=== PATIENT | female | born 1990 | race Caucasian/White ===

== ENCOUNTER 2021-10-06 13:55 | Outpatient (CLI) | payer OTHER, SELFPAY ==
--- NOTE | 2021-10-06 14:00 | US_ITS ---
Final Report Patient: NISHA DIXON Facility:?[facility] Patient ID:?[id number] Site Patient ID:?[id number]. Site :?1990 Study:?US OB Pelvis -10/06/2021 2:32:04 PM Ordering Physician:Ginna Collins Final Report: INDICATION: Dating and viability. TECHNIQUE: Ultrasound OB pelvis transabdominal and transvaginal. Real-time johnson-scale imaging of the pelvis was performed. COMPARISON: None. FINDINGS: There is a single intrauterine gestation. The embryo demonstrates a regular cardiac rate measuring 178 beats per minute. The embryo`s crown rump length measurement of 2.4 cm corresponds to a gestational age of 9 weeks 1 day with a sonographic due date of 05/10/2022. There is a normal appearing yolk sac. There are no gross abnormalities noted within the embryo at this early state of development. There is no sign of perigestational hemorrhage. The ovaries are of normal size. Right ovary measures 2.9 x 1.1 x 1.5 cm. Left ovary measures 3.4 x 2.2 x 2.0 cm. Corpus luteum cyst on the left there are no suspicious fluid collections noted in the cul-de-sac. IMPRESSION: Single viable intrauterine estimated gestational age of 9 weeks 1 day. No abnormalities seen. Dictated by Víctor Ballesteros MD @ 10/06/2021 8:51:14 PM (Electronic Signature)
== END 2021-10-06 13:56 | disposition home or self-care (01) ==
PROVIDERS: Visit Provider Registered Nurse
DX: Z34.91 Encounter for supervision of normal pregnancy, unspecified, first trimester (principal); Z36.87 Encounter for antenatal screening for uncertain dates; Z36.89 Encounter for other specified antenatal screening
CPT/HCPCS: 76817; 81420

== ENCOUNTER 2021-10-06 15:25 | Outpatient (CLI) | payer OTHER, SELFPAY ==
[2021-10-06 19:48] LABS: HIV 1/2/P24 Combo Screen* Negative (Negative)
[2021-10-06 19:50] LABS: Hepatitis B Surface Antigen* Negative (Negative); Hepatitis C Virus Antibody* Negative (Negative)
[2021-10-09 01:04] LABS: Rapid Plasma Reagin (RPR) Non Reactive (Non Reactive)
== END 2021-10-06 15:26 | disposition home or self-care (01) ==
PROVIDERS: Visit Provider Registered Nurse
DX: Z34.01 Encounter for supervision of normal first pregnancy, first trimester (principal); Z36.89 Encounter for other specified antenatal screening; Z3A.09 9 weeks gestation of pregnancy
CPT/HCPCS: 86592; 86703; 86706; 86762; 86803; 86850; 86900; 86901; 87086; 87491; 87591

== ENCOUNTER 2021-11-24 14:45 | Outpatient (CLI) | payer BC, SELFPAY ==
[2021-11-27 08:47] LABS: Dating Ultrasound; Family Hx Neural Tube Defect No; Gestational Age Calculated 16 wks, 1 days; Insulin Req Maternal Diabetes No; Maternal Age At Delivery 31.5 yr; Maternal Race Nonblack; Maternal Screen Interpretation Screen Neg; MoM for AFP 0.99; Number of Fetuses Singleton; Patient's AFP 35 ng/mL; Smoking No
[2021-12-17 10:39] LABS: Client Provided Dating Method ULTRASOUND; Maternal Weight 148
[2021-12-17 10:40] LABS: Current Smoking N0
== END 2021-11-24 14:46 | disposition home or self-care (01) ==
LOC: LAB 14:46
PROVIDERS: Visit Provider Obstetrics & Gynecology
DX: Z34.92 Encounter for supervision of normal pregnancy, unspecified, second trimester (principal); Z3A.16 16 weeks gestation of pregnancy
CPT/HCPCS: 36415; 81511

== ENCOUNTER 2021-12-22 13:48 | Outpatient (CLI) | payer BC, SELFPAY ==
--- OUTSIDE RECORDS SUMMARY | 2021-12-22 13:50 | XMS_ITS ---
:1990 Author Care Team Providers Name Role Phone Etta [place] Primary Care Provider Unavailable Allergies Code Code System Name Reaction Severity Status Onset NKDA ? Medications Name Status Start Date Stop Date ? ? fluconazole 150 mg tablet Active ? Not av ailable Problems None recorded. Procedures None recorded. Results Lab Results Date Name Specimen Result Interpretation Description Value Range Status Address ? 04/17/2021 SARS CoV 2 RNA, Nose (nasal ? Result negative ? ? [facility], BEAR+probe, passage) [facility]gent [facility] Nose [place]: [address] Past Encounters 04/17/2021 Exposure to SARS-CoV-2 JANETH [place]: [address] [address], Ph. [phone] Social History None recorded. Vaccine List None recorded. Plan of Care Patient Instructions Patient is traveling tomorrow and prese nts today for covid testing. No current symptoms or other concerns. Reminders Provider Appointments None recorded. ? ? Lab None recorded. ? ? Referral None recorded. ? ? Procedures None recorded. ? ? Surgeries None recorded. ? ? Imaging None recorded. ? ? Vitals Blood Pressure 128/89 mm[Hg]
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
--- NOTE | 2021-12-22 14:00 | CRLHL7_ITS ---
For Patients: As a result of the Century Cures Act, medical imaging exams and procedure reports are released immediately into your electronic medical record. You may view this report before your referring provider. If you have questions, please contact your health care provider. INDICATION: Evaluate anatomy. COMPARISON: 10/06/2021 TECHNIQUE: Real time johnson scale imaging of the fetus was performed as well as color Doppler analysis of the umbilical vessels. FINDINGS: Sonographic imaging demonstrates a single living intrauterine gestation. Fetus demonstrates a regular cardiac rate of 152 beats per minute. Fetus has a vertex position. The placenta lies anteriorly without evidence of placenta previa. The edge of the placenta is located 7.9 cm from the internal cervical os. Amniotic fluid volume appears normal. Single deepest vertical pocket: 3.4 cm. The cervix is closed and measures 4.1 cm in length. The composite ultrasound gestational age is calculated at 20 weeks 6 days with an estimated sonographic due date of 05/05/2022. The estimated weight is 377 grams which lies at the 81st %. The following biometric measurements were obtained: Biparietal diameter: 4.9 cm/20 weeks 6 days 79th% Head circumference: 18.0 cm/20 weeks 3 days 55th% Abdominal circumference: 16.2 cm/21 weeks 2 days 79th% Femur length: 3.3 cm/20 weeks 2 days 49th% The HC/AC ratio measures: 1.11 range (1.06-1.25) On anatomic survey, there is a normal appearance of the cerebral ventricles, cavum septi pellucidi, cisterna magna and cerebellum. The nose, lips, and facial profile appear normal. The cervical, thoracic and lumbar spine are well visualized and appear normal. There is a normal four-chamber heart view and the left and right ventricular outflow tracts appear normal. The diaphragm and stomach appear normal. The kidneys and bladder also appear normal. There is a normal three-vessel cord and cord insertion site. The four extremities appear normal. IMPRESSION: Normal OB ultrasound exam with concordance of clinical and sonographic dating. No intrinsic abnormalities noted on anatomic survey. Dictated by Ryan Andino MD @ 12/22/2021 3:01:38 PM (Electronically Signed)
== END 2021-12-22 13:49 | disposition home or self-care (01) ==
PROVIDERS: Visit Provider Registered Nurse
DX: Z36.89 Encounter for other specified antenatal screening (principal)
CPT/HCPCS: 76805

== ENCOUNTER 2022-02-16 14:23 | Outpatient (CLI) | payer BC, SELFPAY ==
--- OUTSIDE RECORDS SUMMARY | 2022-02-16 14:26 | XMS_ITS | Clinical Summary ---
:1990 Author Organization [facility] [place] [address] Care Team Providers Name Role Phone Clinic, [...] Comments Blood Pressure 138/86 06/11/2021 4:40 PM COUNSEL Pulse 97 06/11/2021 4:40 PM COUNSEL Temperature 37.3 ??C (99.1 ??F) 06/11/2021 4:40 PM COUNSEL Respiratory Rate 16 03/13/2007 10:16 PM COUNSEL Oxygen Saturation 100% 06/11/2021 4:40 PM COUNSEL Inhaled Oxygen Concentration - - Weight 63.2 kg (139 lb 6.4 oz) 06/11/2021 4:40 PM COUNSEL Height 172.7 cm (5' 8) 06/11/2021 4:40 PM COUNSEL Body Mass Index 21.2 06/11/2021 4:40 PM COUNSEL Plan of Treatment Health Maintenance Due Date Last Done Comments Hepatitis C screening for age 0811/24/2008 18-79 COVID-19 vaccine series (2 - 08/14/2020 06/19/2020 Booster for Brnaden series) Depression screening for age 12+ 07/11/2021 [...] ss Type Group PREFERRED ONE ALLIED BENEFIT [id number] 2020-Present [employer] [phone] [place] [address] Care Teams Fur Finisher Relationship Specialty Start Date End Date Clinic, No Pcp Or PCP - General 03/12/19 .
[2022-02-18 10:21] LABS: Rapid Plasma Reagin (RPR) Non Reactive (Non Reactive)
== END 2022-02-16 14:24 | disposition home or self-care (01) ==
LOC: NFLDREF 14:23
PROVIDERS: Visit Provider Registered Nurse
DX: Z34.90 Encounter for supervision of normal pregnancy, unspecified, unspecified trimester (principal)
CPT/HCPCS: 86592

== ENCOUNTER 2022-02-22 08:54 | Outpatient (CLI) | payer BC, SELFPAY ==
--- OUTSIDE RECORDS SUMMARY | 2022-02-22 08:57 | XMS_ITS | Clinical Summary ---
:1990 Author Organization [facility] [place] [address] Care Team Providers Name Role Phone Clinic, [...] Comments Blood Pressure 138/86 06/11/2021 4:40 PM PRIME BROKER Pulse 97 06/11/2021 4:40 PM PRIME BROKER Temperature 37.3 ??C (99.1 ??F) 06/11/2021 4:40 PM PRIME BROKER Respiratory Rate 16 03/13/2007 10:16 PM PRIME BROKER Oxygen Saturation 100% 06/11/2021 4:40 PM PRIME BROKER Inhaled Oxygen Concentration - - Weight 63.2 kg (139 lb 6.4 oz) 06/11/2021 4:40 PM PRIME BROKER Height 172.7 cm (5' 8) 06/11/2021 4:40 PM PRIME BROKER Body Mass Index 21.2 06/11/2021 4:40 PM PRIME BROKER Plan of Treatment Health Maintenance Due Date [...] ss Type Group PREFERRED ONE ALLIED BENEFIT [id number] 2020-Present [employer] [phone] [place] [address] Care Teams Pct Relationship Specialty Start Date End Date Clinic, No Pcp Or PCP - General 03/12/19 .
== END 2022-02-22 08:55 | disposition home or self-care (01) ==
LOC: NFLDREF 08:55
PROVIDERS: Visit Provider Obstetrics & Gynecology
DX: R39.9 Unspecified symptoms and signs involving the genitourinary system (principal)
CPT/HCPCS: 87086

== ENCOUNTER 2022-04-13 14:27 | Outpatient (CLI) | payer BC, SELFPAY ==
[2022-04-14 12:51] LABS: Strep B DNA Probe NEGATIVE (Negative)
[2022-04-14 12:55] LABS: Strep B Pen/Amox Allergy No
== END 2022-04-13 14:28 | disposition home or self-care (01) ==
LOC: NFLDREF 14:29
PROVIDERS: Visit Provider Obstetrics & Gynecology
DX: Z34.93 Encounter for supervision of normal pregnancy, unspecified, third trimester (principal); Z3A.36 36 weeks gestation of pregnancy
CPT/HCPCS: 87081; 87653

== ENCOUNTER 2022-05-18 15:59 | Inpatient (IN) | payer BC, SELFPAY ==
[2022-05-18 16:25] VITALS: BMI 28.3
--- NOTE | 2022-05-18 16:35 | W.PM.LDBA ---
Subjective History of Present Illness Time Seen by Provider: 17:03 Date Seen: 05/18/22 Narrative: Patient is being admitted to Labor and Delivery for IOL due to post term dates . She is a 31 year old at 41 0/7 weeks gestation. Her full history and physical was dictated by Dr. Avitia on 04/20/22. Please see this for details. Comments: Specific Issues/Plans G1, P0 : Bacilio. Baby: Girl! Gracie 1. History of ADHD and anxiety.? Took medication several years ago.? Doing quite well without medication. ? 2. Migraines.? No migraines in a long time.? Used triptans in the past. 3. Frequent UTIs.? Urine culture 10/06/21:? >100 K mixed elyssa MaterniT 21:? neg, consistent with female flu: 01/19/22 Covid:? Completed and boosted TDAP: 03/02/22 OB - Problem Based A/P Additional Plan (1) : Status: Acute Plan IOL due to post term dates: 1. Cook catheter placed and balloons filled with 50/50 mL, will plan to start oxytocin at midnight 2. GBS negative no need for antibiotic prophylaxis 3. Candidate for analgesia of choice 4. Discussed with patient that in am care will be assumed by locum provider Dr. Hernandez OB Exam Physical Exam Vital signs: Normal please see chart Detailed Labor and Delivery Exam Patient Gravid: Yes Dilation (cm): 1 Effacement (%): 50 Cervix position: mid Consistency: soft Contraction Frequency: Sporadic Tachysystole: No Contraction intensity: Mild Fetus (Single) Station: -2 Amniotic Membrane Status: intact Heart Rate Baseline: 135 Monitor Accelerations: Present Monitor Decelerations: None [facility] Variability: Moderate (6-25)
[2022-05-18 17:13] LABS: SARS PCR* Negative SARS-CoV-2 (Negative)
[2022-05-18 17:19] VITALS: RESP 16; TEMP 36.9
[2022-05-18 17:20] VITALS: BP 127/75; PULSE 81
[2022-05-18 18:29] LABS: Basophils Percent Auto 0.3 % (0.0-3.0); Hematocrit 43.2 % (33.0-51.0); Hemoglobin* 14.6 gm/dL (12.0-16.0); Immature Granulocytes Pct Auto 0.9 %; Lymphocytes Percent Auto 18.2 % (20-44); Mean Corpuscular HGB Conc 34 gm/dL (32-36); Mean Corpuscular Hemoglobin 30 pg (26-34); Mean Corpuscular Volume 89 fL (80-100); Monocytes Percent Auto 7.6 % (0.0-11.0); Platelet Count* 183 K/uL (140-440); RDW Coefficient of Variation % 13.4 % (11.5-15.5); Red Blood Count 4.85 m/uL (4.00-5.20); White Blood Count* 11.08 K/uL (4.50-11.00)
[2022-05-18 18:30] LABS: Slide Review Reflex No
[2022-05-18] MEDS: hydrOXYzine pamoate 25 MG CAPSULE 100 MG PO (19:22)
[2022-05-18] MEDS: MORPHINE 10 MG/ML inj IM (19:23)
[2022-05-18 19:29] VITALS: BP 116/64; PULSE 82
[2022-05-18 19:31] VITALS: RESP 18; TEMP 36.8
[2022-05-18 23:14] VITALS: BP 120/57; PULSE 74
[2022-05-18 23:17] VITALS: RESP 16; TEMP 36.9
[2022-05-19] VITALS (73 sets, daily range): BP systolic 96–193; BP diastolic 53–89; PULSE 71–127; RESP 16–18; TEMP 36.6–37; O2SAT 93–100
[2022-05-19] MEDS: SODIUM CHLORIDE 0.9 % (FLUSH) 10 ML SYRINGE IVF
[2022-05-19] MEDS: OXYTOCIN 30 unit/500 ML in NS 30 UNIT/500 ML BAG IVPB (00:01)
[2022-05-19] MEDS: LACTATED RINGERS 1000 ML 1,000 ML 125 ML IV ×2 (00:01→07:31)
--- NOTE | 2022-05-19 08:08 | P.OBPN_ITS ---
Subjective Date Seen: 05/19/22 Narrative: Jenn is a at 41 1/7 weeks gestation, admitted last evening for IOL for post-term. She is coping well with labor pain/contractions. She is currently being supported by her .. Understands the current plan of care as discussed with her by Dr. Burns. We are assuming care as she prefers not to have a Locum MD for delivery. On most recent exam, she was 4cm 75% effaced. Her induction was started with a cook catheter and Pitocin. Cook has since fallen out but they continue to titrate Pitocin. Plan for AROM at some point this morning. She prefers to wait so that she can be up and moving around. She plans to get an epidural before AROM. Objective Exam: Constitutional: Alert and oriented x3, mild/moderate distress, coping well. Does pause through contractions. Vital signs stable, see nurse documentation?? Abdomen: gravid, contractions palpate mild/moderate with contractions and soft between? Vital Signs: Last Vital Signs Temp 97.8 F 05/19/22 07:14 Pulse 82 05/19/22 07:14 Resp 18 05/19/22 07:14 BP 122/72 05/19/22 07:14 Contractions Monitor mode: External Contraction pattern: Regular Contraction intensity: Mild Assessment Assessment: early labor Station: -2 Heart Rate Baseline: 135 Residential Variability: Moderate (6-25) Monitor Accelerations: Present Monitor Decelerations: None Plan Plan: ASSESSMENT:? 31 at 41 1/7 weeks gestation? complicated by:?none Labor type: induced, early labor? Category 1 FHR pattern.?? Labor complicated by: none? GBS negative? ? PLAN:? 1. Routine intrapartum cares as ordered. Continue with pitocin per protocol.? 2. Monitoring per policy, continuous? 3. Planning epidural for pain management. May have analgesic of choice when ready. 4. Patient encouraged to reposition and ambulate to promote physiologic labor and until epidural. Then continue position changes after.? 5. Anticipate ?
[2022-05-19] MEDS: LACTATED RINGERS 1000 ML 1,000 ML 1200 ML IV (09:22)
[2022-05-19] MEDS: LIDOCAINE 2% (PF) 5 ML VIAL EPIDURAL (09:26)
[2022-05-19] MEDS: fentaNYL 250 MCG/5 ML inj 100 MCG EPIDURAL (09:30)
[2022-05-19] MEDS: ROPIVACAINE 0.2% 100 ml 100 ML 12 MG EPIDURAL (09:36)
--- NOTE | 2022-05-19 09:48 | PM.ANBPRC ---
PFSH PFSH Social History Smoking Status: Never smoker Little interest or pleasure in doing things: not at all Feeling down, depressed, or hopeless: not at all Meds Home Medications and Allergies Home Medications Medication Instructions Recorded Confirmed Type prenat.vits,brandon,oxi-tjdr-udjij 1 tab PO QDAY 10/06/21 05/18/22 History calcium carbonate 200 mg calcium 200 mg PO BID 01/19/22 05/18/22 History (500 mg) chewable tablet (Tums) docusate sodium 100 mg capsule 100 mg PO BID 01/19/22 05/18/22 History (Colace) polyethylene glycol 3350 17 4 g PO ONCE 03/30/22 05/18/22 History gram/dose oral powder (Miralax) Allergies Allergy/AdvReac Type Severity Reaction Status Date / Time No Known Drug Allergies Allergy Verified 05/17/22 12:35 Results Labs Labs: Laboratory Results - last 24 hr 05/18/22 05/18/22 05/18/22 16:17 18:22 18:22 WBC 11.08 H RBC 4.85 Hgb 14.6 Hct 43.2 MCV 89 MCH 30 MCHC 34 RDW Coeff of Reema 13.4 Plt Count 183 Neut % (Auto) 72.0 Lymph % (Auto) 18.2 L [place] % (Auto) 7.6 Eos % (Auto) 1.0 Baso % (Auto) 0.3 Neut # (Auto) 8.00 H Lymph # (Auto) 2.00 [place] # (Auto) 0.80 Eos # (Auto) 0.10 Baso # (Auto) 0.00 SARS-CoV-2 (PCR) Negative SARS-CoV-2 Blood Type O Positive Antibody Screen NEGATIVE Vital Signs Vital Signs: Last Vital Signs Temp 98.1 F 05/19/22 09:46 Pulse 97 05/19/22 09:42 Resp 18 05/19/22 09:46 BP 105/55 L 05/19/22 09:42 Pulse Ox 100 05/19/22 09:47 Weight: 84.567 kg Height: 172.72 cm Anesthesia Procedures Epidural Insertion Patient Location: OB Start Time: 09:00 Stop Time: 10:00 Start Date: 05/19/22 Stop Date: 05/19/22 Reason for Block: primary anesthetic Patient Position: sitting Performed By: Rodolfo Muñoz Preanesthetic Checklist: IV checked, risks and benefits discussed, surgical consent, monitors and equipment checked, pre-op evaluation, timeout performed and anesthesia consent Prep: chlorhexidine gluconate Monitoring: blood pressure monitoring, radiographer cardiac catheterization, continuous pulse oximetry and heart rate Approach: midline Vertebral Space: lumbar (1-5) Needle Type: Tuohy needle Injection Technique: continuous catheter Needle gauge: 17 Needle Length (cm): 10 cm Needle Insertion Depth (cm): 6 Catheter Gauge: 19 Catheter Type: multi-orifice Catheter at skin depth (cm): 12 Test Dose Result: negative and lidocaine 1.5% with epinephrine 1 to 200,000 Events: other
[2022-05-19] MEDS: PHENYLEPHRINE 100 MCG/ML SYRINGE IVP (10:05)
--- NOTE | 2022-05-19 16:05 | P.OBPRC_ITS ---
Procedure Delivery date: 05/19/22 Procedure Done: Global Events: Labor Induction (Post dates 41 1/7 weeks) Intrapartal Events: Labor Induction Induction method: per pitocin protocol (Hardwick Catheter) Delivery monitor: external FHT and external uterine Route of delivery: Laceration description: Perineal - 2nd Degree (slight) Delivery repair: Vicryl Estimated blood loss (mL): 670 Anesthesia type: Epidural Disposition: floor Narrative: The patient is a 31 year-old G1 now P1 admitted on 05/18/2022 at 40 Weeks, 0 Days gestation for induction of labor for post-dates.?On admission a category 1 tracing was obtained.? SROM occurred at 1207 with clear fluid. ? Labor Analgesia:? Epidural ? Pitocin:? Yes for IOL and AMSTL ? Labor onset:? 05/19/2022 at 0915 ? Complete:05/19 at 1158 ? Pushing:? 05/19 at 1204 ? heart tones during second stage were Category II with variables noted, FHR 135, moderate variability with occasional accelerations. Good return to baseline noted between contractions. ? Patient progressed normally with Pitocin. of a viable female at 1436 in right tilt. Vertex delivered OA. Nuchal cord palpated at delivery unable to reduce, delivered through. No shoulder. Body delivered easily and without incident. passed to mothers abdomen with a vigorous cry. Cord was clamped and cut at 1 minute. APGARS were 8 at one minute and 8 at five minutes respectively. Mouth was bulb suctioned. Intact placenta with a 3 vessel cord delivered spontaneously at 1444. Immediately after delivery of the infant, there was steady bright red bleeding noted from the perineum. Bleeding was located and a figure 8 stitch was placed which slowed bleeding to a trickle. Perineum had a slight 2nd degree laceration which was repaired, additional stitches placed to achieve hemostasis. Vaginal hematomas present, not growing during repair. Bilateral periurethral tears noted which did not require repair. Fundus firm however cervix visible at vaginal opening uterus sitting low in pelvis, bleeding WNL. QBL 670 cc, bleeding mostly from laceration. Mother and baby stable; mother plans to breastfeed. Infant weight pending. ? Placenta delivered spontaneously and complete at 1444 with a 3 vessel cord. ? Mother and were stable after delivery. ? Lacerations: shallow 2nd degree, Repaired with 3.0 vicryl. ? Blood loss: 670 mL. Blood loss measurement type: QBL ? Sponge and needles counts are correct. Brooks Infant Gender: Female presentation: vertex Placental Delivery Description: Spontaneous Cord Description: 3 Vessels and Nuchal Cord (times 1) OB Vag Delivery Procedures Additional Procedures ECV: No Optosecurity Catheter Insertion: Yes (inserted by MD for IOL) NST: No D&C: No Laceration Repair: Yes Tubal Ligation : No Other: No
[2022-05-19] MEDS: miSOPROStoL 800 MCG/4 TABLET PR (16:32)
[2022-05-19] MEDS: IBUPROFEN 600 MG TABLET PO (16:39)
[2022-05-19] MEDS: ACETAMINOPHEN 500 MG TABLET 1000 MG PO (20:46)
[2022-05-20] MEDS: IBUPROFEN 600 MG TABLET PO ×2 (00:55→06:58)
[2022-05-20 01:00] VITALS: BP 112/75; PULSE 74; RESP 16; TEMP 36.8; O2SAT 94
[2022-05-20] MEDS: ACETAMINOPHEN 500 MG TABLET 1000 MG PO (02:50)
[2022-05-20 04:45] VITALS: BP 120/67; PULSE 71; RESP 16; TEMP 36.4; O2SAT 97
[2022-05-20 06:11] LABS: Hemoglobin* 12.1 gm/dL (12.0-16.0)
[2022-05-20 07:37] VITALS: BP 115/78; PULSE 74; RESP 16; TEMP 36.4; O2SAT 96
[2022-05-20] MEDS: DOCUSATE SODIUM 100 MG CAPSULE PO (07:44)
--- NOTE | 2022-05-20 08:34 | P.DS_ITS ---
DS: Providers Provider Time Seen by Provider: 08:34 Date Seen: 05/20/22 Date of admission: 05/18/22 15:59 Primary care physician: Not a Local Provider Admitting Clinician: Asiya Malone MD Attending Physician on discharge: Linda Garland CNM Date of Discharge: 05/20/22 DS: Diagnosis Discharge Diagnosis (1) state: Status: Acute (2) Lactating mother: Status: Acute Exam Narrative: Exam Narrative: Objective: VSS, afebrile GENERAL APPEARANCE: ?normal affect, alert, no distress MOOD: ?appropriate HEENT: normocephalic, neck supple, full ROM CHEST: ?Symmetrical chest wall movement. ?Normal respiratory effort. ?Clear to auscultation HEART: ?regular rate and rhythm ABDOMEN: ?soft, non-tender. Uterine fundus is firm, 2 under Umbilicus, Midline and is appropriate for the stage of recovery. ?Bowel sounds present. PERINEUM:?mild edema of the perineum, there is a 2nd degree laceration that is healing well. EXTREMITIES: ?normal and no edema Const: Vital Signs, click to edit/add: Vital Signs - 24 hr 05/19/22 09:27 05/19/22 09:30 05/19/22 09:32 Temperature Pulse Rate 100 Pulse Rate [Pulse Oximeter] Respiratory Rate Blood Pressure 137/81 Blood Pressure [Ri ght Arm] Pulse Oximetry 99 100 Oxygen Delivery Me thod 05/19/22 09:35 05/19/22 09:36 05/19/22 09:37 Temperature Pulse Rate 96 103 H Pulse Rate [Pulse Oximeter] Respiratory Rate Blood Pressure 109/69 114/65 Blood Pressure [Ri ght Arm] Pulse Oximetry 100 Oxygen Delivery Me thod 05/19/22 09:38 05/19/22 09:40 05/19/22 09:42 Temperature Pulse Rate 97 96 97 Pulse Rate [Pulse Oximeter] Respiratory Rate Blood Pressure 110/60 109/60 105/55 L Blood Pressure [Ri ght Arm] Pulse Oximetry 100 Oxygen Delivery Me thod 05/19/22 09:47 05/19/22 09:46 05/19/22 09:49 Temperature 98.1 F Pulse Rate 99 Pulse Rate [Pulse Oximeter] Respiratory Rate 18 Blood Pressure 102/57 L Blood Pressure [Ri ght Arm] Pulse Oximetry 100 Oxygen Delivery Wv thod 05/19/22 09:50 05/19/22 09:52 05/19/22 09:53 Temperature Pulse Rate 90 96 Pulse Rate [Pulse Oximeter] Respiratory Rate Blood Pressure 99/55 L 99/54 L Blood Pressure [Ri ght Arm] Pulse Oximetry 100 Oxygen Delivery Wv thod 05/19/22 09:57 05/19/22 09:58 05/19/22 10:02 Temperature Pulse Rate 95 Pulse Rate [Pulse Oximeter] Respiratory Rate Blood Pressure 107/59 L Blood Pressure [Ri ght Arm] Pulse Oximetry 100 100 Oxygen Delivery Wv thod 05/19/22 10:04 05/19/22 10:05 05/19/22 10:09 Temperature Pulse Rate 93 88 Pulse Rate [Pulse Oximeter] Respiratory Rate Blood Pressure 96/53 L 123/66 Blood Pressure [Ri ght Arm] Pulse Oximetry 93 Oxygen Delivery Wv thod 05/19/22 10:13 05/19/22 10:19 05/19/22 10:24 Temperature Pulse Rate 86 89 88 Pulse Rate [Pulse Oximeter] Respiratory Rate Blood Pressure 124/70 127/89 112/68 Blood Pressure [Ri ght Arm] Pulse Oximetry Oxygen Delivery Wv thod 05/19/22 10:29 05/19/22 10:34 05/19/22 10:37 Temperature 98.3 F Pulse Rate 84 101 H Pulse Rate [Pulse Oximeter] Respiratory Rate 18 Blood Pressure 103/63 106/69 Blood Pressure [Ri ght Arm] Pulse Oximetry Oxygen Delivery Wv thod 05/19/22 10:49 05/19/22 11:04 05/19/22 11:21 Temperature Pulse Rate 90 92 86 Pulse Rate [Pulse Oximeter] Respiratory Rate Blood Pressure 108/66 107/72 109/69 Blood Pressure [Ri ght Arm] Pulse Oximetry Oxygen Delivery Wv thod 05/19/22 11:34 05/19/22 11:43 05/19/22 11:50 Temperature 98.4 F Pulse Rate 89 85 Pulse Rate [Pulse Oximeter] Respiratory Rate 18 Blood Pressure 100/64 106/61 Blood Pressure [Ri ght Arm] Pulse Oximetry Oxygen Delivery Wv thod 05/19/22 12:05 05/19/22 12:51 05/19/22 13:04 Temperature Pulse Rate 127 H 96 89 Pulse Rate [Pulse Oximeter] Respiratory Rate Blood Pressure 122/84 111/61 104/69 Blood Pressure [Ri ght Arm] Pulse Oximetry Oxygen Delivery Wv thod 05/19/22 13:22 05/19/22 13:23 05/19/22 13:34 Temperature 98.5 F Pulse Rate 90 88 Pulse Rate [Pulse Oximeter] Respiratory Rate 18 Blood Pressure 111/56 L 105/53 L Blood Pressure [Ri ght Arm] P[facility]ximetry [facility] 13:49 05/19/22 14:04 05/19/22 14:19 Temperature Pulse Rate 81 90 96 Pulse Rate [Pulse Oximeter] Respiratory Rate Blood Pressure 118/56 L 118/64 120/71 Blood Pressure [Ri ght Arm] Pulse Oximetry [facility] 14:34 05/19/22 14:46 05/19/22 14:51 Temperature Pulse Rate 91 105 H Pulse Rate [Pulse Oximeter] Respiratory Rate Blood Pressure 128/60 127/63 Blood Pressure [Ri ght Arm] Pulse Oximetry 99 [facility] 14:56 05/19/22 15:01 05/19/22 15:17 Temperature Pulse Rate 94 89 Pulse Rate [Pulse Oximeter] Respiratory Rate Blood Pressure 113/55 L 138/65 Blood Pressure [Ri ght Arm] Pulse Oximetry 100 [facility]22 15:31 05/19/22 15:33 05/19/22 15:45 Temperature Pulse Rate 90 92 97 Pulse Rate [Pulse Oximeter] Respiratory Rate Blood Pressure 193/72 H 118/61 120/74 Blood Pressure [Ri ght Arm] Pulse Oximetry [facility]22 16:01 05/19/22 16:01 05/19/22 16:15 Temperature 98.6 F Pulse Rate 93 94 Pulse Rate [Pulse Oximeter] Respiratory Rate 16 Blood Pressure 117/65 116/66 Blood Pressure [Ri ght Arm] Pulse Oximetry [facility]22 16:31 05/19/22 14:45 05/19/22 15:00 Temperature 98.6 F Pulse Rate 102 H Pulse Rate [Pulse Oximeter] 89 93 Respiratory Rate 16 18 Blood Pressure 125/59 L Blood Pressure [Ri ght Arm] 113/55 L Pulse Oximetry 99 100 [facility] 05[facility]/22 15:16 05/19/22 15:31 05/19/22 15:45 Temperature Pulse Rate Pulse Rate [Pulse Oximeter] Respiratory Rate 18 18 18 Blood Pressure Blood Pressure [Ri ght Arm] Pulse Oximetry Oxygen Delivery Me thod 05/19/22 16:00 05/19/22 16:15 05/19/22 16:30 Temperature Pulse Rate Pulse Rate [Pulse Oximeter] Respiratory Rate 18 18 18 Blood Pressure Blood Pressure [Ri ght Arm] Pulse Oximetry Oxygen Delivery Me thod 05/19/22 20:57 05/20/22 01:00 05/20/22 04:45 Temperature 98.6 F 98.2 F 97.6 F Pulse Rate Pulse Rate [Pulse Oximeter] 84 74 71 Respiratory Rate 16 16 16 Blood Pressure Blood Pressure [Ri ght Arm] 116/72 112/75 120/67 Pulse Oximetry 96 94 97 Oxygen Delivery Me thod Room Air Room Air Room Air 05/20/22 07:37 Temperature 97.6 F Pulse Rate Pulse Rate [Pulse Oximeter] 74 Respiratory Rate 16 Blood Pressure Blood Pressure [Ri ght Arm] 115/78 Pulse Oximetry 96 Oxygen Delivery Me thod Room Air Documenting provider has reviewed patient's vital signs: yes OB - DS: Summary Hospital Course Hospital Course: Subjective: Jenn is a 31 y.o. G1 now P1 who was admitted to [facility] for IOL r/t postdates. ?She had an uncomplicated spontaneous vaginal delivery. The patient feels well. ?The pain is well controlled with current medications. ?She has no new complaints. ?She is breast feeding and reports things are going well.? the patient has done well.? Vitals have been stable.? She has remained afebrile.? Has a good appetite, is tolerating a general diet. ?She is voiding without difficulty.? She is passing gas and has not had a bowel movement.? She is ambulating and denies any dizziness.? Has a small amount of rubra lochia. ?She is planning Nexplanon for prevention. Assessment: G1 now P1 Lactating Mother plan: Discharge home with baby. Follow up in 2 weeks and 6 weeks in clinic. , may follow up with if needed Peripartum Data Infant delivery method: Vaginal Laceration description: Perineal - 2nd Degree complications: none Gender: Female (Gracie) Discharge Plan: Home Status at Discharge Functional status at discharge: independent ambulation Overall status at discharge: patient is progressing back to baseline Time Spent with Patient Time attestation: Total time spent providing and/or coordinating discharge services: Time spent: Less than 30 minutes Discharge Plan Discharge Disposition: Home, Self-Care Date of Admission: 05/18/22 15:59 Attending Provider on Discharge: Linda Garland Primary Care Provider: Provider,Not a Local Condition: Stable Anticipated Discharge Date/Time: 05/20/22 15:00 Discharge Medications: New docusate sodium 100 mg Capsule 100 mg PO BID Qty: 100 0RF ibuprofen 600 mg Tablet 600 mg PO Q6H PRNQty: 60 0RF acetaminophen 500 mg Tablet 1,000 mg PO Q6H PRNQty: 0 0RF Continued prenat.vits,brandon,[id number] Tablet 1 tab PO QDAY polyethylene glycol 3350 [Miralax] 17 gram/dose powder 4 g PO ONCE calcium carbonate [Tums] 200 mg calcium (500 mg) tablet,chewable 200 mg PO BID docusate sodium [Colace] 100 mg capsule 100 mg PO BID Discharge Orders: Discharge Order (Routine); Ordered 05/20/22 Ordered By: Linda Garland Patient Education: OB Over the Counter Medication Information, OB Vaginal/Breast Feeding Additional Instructions: 2 and 6 week visits Activity Level: Activity as Tolerated Discharge Diet: Regular Follow Up Appointments: Provider,Not a Local [Primary Care Provider] - Forms: EvaluAgent Info Instructions
[2022-05-20 13:44] VITALS: BP 107/70; PULSE 86; RESP 16; TEMP 36.8; O2SAT 98
== END 2022-05-20 15:50 | disposition home or self-care (01) | DRG 560 ==
PROVIDERS: Advanced Practice Midwife; Admitting Provider Obstetrics & Gynecology; Visit Provider Obstetrics & Gynecology
DX: O48.0 Post-term pregnancy (principal); Z3A.41 41 weeks gestation of pregnancy; Z37.0 Single live birth; O70.1 Second degree perineal laceration during delivery
CPT/HCPCS: 01967; 36415; 59200; 76816; 76819; 85018; 85025; 86850; 86900; 86901; 87635; 88307; A9270; J2270; J2370; J2795; J3010; J7120

== ENCOUNTER 2023-12-28 19:29 | Emergency (ER) | payer BC, SELFPAY ==
[2023-12-28 19:36] VITALS: BP 157/95; PULSE 112; RESP 16; TEMP 37; O2SAT 98; BMI 20.5
--- NOTE | 2023-12-28 20:13 | ED.GENADULT ---
HPI - General Adult General Chief complaint: Vaginal Bleeding Stated complaint: possible miscarraige Time Seen by Provider: 12/28/23 20:13 History of Present Illness HPI narrative: Pt states she would be 4-5 weeks , from a home test-positive a week ago. Pt reports spotting this morning, mild cramping, lower back pain. Bleeding amount is an Overnight pad every 3 hours. customer service correspondence clerk stated to be checked out. No light headedness or dizziness. No care and has not seen an OB MD yet. Pt states lower back pain rated 3/10 . Pt took Tylenol 2 hours ago. 33-year-old woman presenting to the emergency department with concern of possible miscarriage. She is experiencing some low abdominal cramping and much more back discomfort. Recommended to evaluated in the emergency department. Think some concern is potential ectopic. Last menstrual period was 11/25/2023. This would be just shy of 5 weeks . She did take a ?early home test? a week ago which is positive. Started spotting this morning progressing for mild cramping and then lower back pain increasing. Bleeding has increased as well going through ?run overnight pad every 3 hours. Not short of breath or lightheaded. Treated with acetaminophen. Less nausea. Fever. Notes her blood type to be O positive Related Data Home Medications ?Medication ?Instructions ?Recorded ?Confirmed prenat.vits,brandon,[id number] 1 tab PO QDAY 10/06/21 10/31/23 Previous Rx's ?Medication ?Instructions ?Recorded albuterol sulfate 90 mcg/actuation 2 puff inhalation Q6H PRN 03/10/23 aerosol inhaler shortness of breath or wheezing #6.7 grams Allergies Allergy/AdvReac Type Severity Reaction Status Date / Time No Known Drug Allergies Allergy Verified 10/31/23 13:24 Review of Systems Status of ROS: Reports: 6 or more systems reviewed and unremarkable except as noted in History and below PFSH PFS Social History What is your current living situation?: I presently have a place to live Problems where you live: no known problems In the past 12 months, utilities in danger of being shut off: no In past 12 months, lack of transportation kept you from medical appts, meetings, work, or getting things needed for daily living: no In the past 12 mos, have been you worried that your food would run out before you had money to buy more?: never true In the past 12 mos, the food you bought just didn't last and you didn't have money to buy more?: never true Smoking Status: Never smoker How often does anyone, including family, friends and others, physically hurt you: never How often does anyone, including family, friends and others, insult or talk down to you: never How often does anyone, including family, friends and others, threaten you with harm: never How often does anyone, including family, friends and others, scream or curse at you: never Little interest or pleasure in doing things: not at all Feeling down, depressed, or hopeless: not at all Exam Const: Vital Signs, click to edit/add: Vital Signs - 24 hr 12/28/23 19:36 Temperature 98.6 F Pulse Rate [Left P ulse Oximeter] 112 H Respiratory Rate 16 Blood Pressure [Ri ght Upper Arm] 157/95 H Pulse Oximetry 98 Oxygen Delivery Me thod Room Air Course Vital Signs Vital signs: Initial Vital Signs Temperature 98.6 F 12/28/23 19:36 Temperature Source Temporal Artery Scan 12/28/23 19:36 Pulse Rate 112 H 12/28/23 19:36 Pulse Rhythm Regular 12/28/23 19:36 Respiratory Rate 16 12/28/23 19:36 Blood Pressure 157/95 H 12/28/23 19:36 Blood Pressure Mean 115 H 12/28/23 19:36 Blood Pressure Position Sitting 12/28/23 19:36 Pulse Oximetry 98 12/28/23 19:36 Oxygen Delivery Method Room Air 12/28/23 19:36 Vital Signs Temperature 98.6 F 12/28/23 19:36 Pulse Rate 112 H 12/28/23 19:36 Respiratory Rate 16 12/28/23 19:36 Blood Pressure 157/95 H 12/28/23 19:36 Pulse Oximetry 98 12/28/23 19:36 Oxygen Delivery Method Room Air 12/28/23 19:36 Temperature 98.6 F 12/28/23 19:36 Pulse Rate 112 H 12/28/23 19:36 Respiratory Rate 16 12/28/23 19:36 Blood Pressure 157/95 H 12/28/23 19:36 Pulse Oximetry 98 12/28/23 19:36 Oxygen Delivery Method Room Air 12/28/23 19:36 Discharge Plan Discharge Prescriptions: No Action prenat.vits,brandon,[id number] Tablet 1 tab PO QDAY albuterol sulfate 90 mcg/actuation HFA aerosol inhaler 2 puff inhalation Q6H PRN (Reason: shortness of breath or wheezing) Qty: 6.7 0RF Follow Up/Referrals: Provider,Not a Local [Primary Care Provider] -
--- NOTE | 2023-12-28 20:21 | US_ITS ---
Patient: NISHA DIXON Facility:?[facility] Patient ID:?[id number] Site Patient ID:?[id number]. Site :?1990 Study:?US-OB Pelvis -12/28/2023 9:03:11 PM Ordering Physician:[place] Final Report: INDICATION: First trimester dating and viability. TECHNIQUE: Ultrasound OB pelvis transvaginal. Real-time johnson-scale imaging of the pelvis was performed. COMPARISON: None. FINDINGS: Intrauterine gestation: Not visualized. heart activity (bpm): Not visualized. Hemlock-rump length: N/A. Estimated ultrasound age: N/A. JIMI by ultrasound: N/A. Yolk sac: Not visualized. Perigestational hemorrhage: None. Ovaries and adnexa: Subcentimeter left adnexal cyst with simple appearance. Suspicious pelvic fluid collections: None. IMPRESSION: No sonographically apparent intrauterine , which could be due to early gestation. Consider beta hCG correlation and follow-up ultrasound in 10-14 days. Dictated by Ryan Ocasio MD @ 12/28/2023 10:09:09 PM Signed by:?Ryan Ocasio MD @12/28/2023 10:09:09 PM (Electronic Signature)
[2023-12-28 20:38] LABS: Hemoglobin* 14.3 gm/dL (12.0-16.0)
[2023-12-28 20:59] VITALS: BP 120/85; PULSE 92; RESP 18; O2SAT 97
[2023-12-28 21:11] LABS: HCG Quantitative* 6.13 mIU/mL
--- OUTSIDE RECORDS SUMMARY | 2023-12-28 21:22 | XMS_ITS | Clinical Summary ---
Author Organization [facility] Address [place], [place] [address] Care Team Providers Care Proposal Specialist Name Role Phone Clinic, No Pcp Or Primary Care Provider Unavaila ble Allergies No known active allergies Medications Medication Sig Dispensed Refills Start Date End Date Status etonogestrel subdermal implant (NEXPLANON) 68 mg implant Inject 1 Dose subcutaneous. 05/24/2016 Active MULTIVITAMIN ORAL daily. 05/13/2016 Active SUMAtriptan (IMITREX) 50 mg tabletIndications:Anthony nette without status migrainosus, not intractable, unspecified migraine type Take 1 tablet by mouth every 2 hours if needed for Migraine. Give at minimum 2hrs apart. Max Dose: 200mg per 24hrs. 10 tablet 3 03/23/2019 Active melatonin 5 mg capsule Take 1 capsule by mouth. 0 06/04/2019 Active Immunizations Name Administration Dates Next Due COVID-19 vaccine (Branden-J&J) PATRICIA GREENE 1 DTP 10/10/1995, 3,05/12/1991,03/11,01/09/1991 Hepatitis B (Peds) 01/16/2002 Hib Conjugate, Unspecified 02/10/1992,,03/11/1991,01/09 Human Papilloma Virus Vaccine 03/24/2010 ,11/17/2009,09/12/2009,10/26 Human Papilloma Virus Vaccin e, Unspecified 03/24/2010,11/17/2009,09/12/2009 Influenza A (H1N1), Inactivated 04/09/2009 Influenza Virus, Unspecified 03/27/2015 Influenza, IIV3 (Age 6-35 mos) 01/21/2009 Influenza, IIV4 01/07/2020,03/23/2019,02/28/2017 Influenza, IIV4 (=>6mos) MDV 03/27/2015 MMR 02/10/1992 Meningococcal Vaccine (Menomune) 11/11/2005 Polio Virus, Unspecified 10/10/1995,04/1992,03/11/1991,01/09 Td (Age >=7 Years) 01/16/2002 Tdap 03/23/2019,08/13/2009,10/27/2007 Family History Medical History Relation Name Comments Good Health Brother Unknown Father Cancer-breast Maternal Grandmother Cancer-colon Maternal Grandmother Cancer-ovarian Maternal Grandmother Lung cancer Maternal Grandmother Hypertension Mother Migraines Mother Relation Name Status Comments Brother Father Maternal Grandmother Mother Social History Tobacco Use Types Packs/Day Years Used Date Smoking Tobacco: Never Smokeless Tobacco: Never Tobacco Cessation:Counseling Given: Yes Alcohol Use Standard Drinks/Week Comments Yes 0 (1 standard drink = 0.6 oz pur e alcohol) weekly, 2-3 drinks Humiliation, Afraid, Rape, and Kick questionnair e Answer Date Recorded Fear of Current or Ex-Partner No Emotionally Abused No 04/11/2019 Physically Abused No 04/11/2019 Sexually Abused No 04/11/2019 PHQ-2 Answer Date Recorded PHQ-2 TOTAL SCORE 1 07/11/2020 Social Connections Answer Date Recorded Frequency of Communication with Friends and Fami ly Not on file 04/11/2021 Financial Resource Strain Answer Date R ecorded Difficulty of Paying Living Expenses Not on file 04/11/2021 Difficulty of Paying Living Expenses Not on file 04/11/2021 Sex and Gender Information Value Date Recorded Sex Assigned at Not on file Gender Identity Not on file Sexual Orientation Not on file Obstetrics History Last Filed Vital Signs Vital Sign Reading Time Taken Comments Blood Pressure 138/86 06/11/2021 4:40 PM [facility] Pulse 97 06/11/2021 4:40 PM [facility] Temperature 37.3 ??C (99.1 ??F) 06/11/2021 4:40 PM CS T Respiratory Rate 16 03/13/2007 10:16 PM [facility] Oxygen Saturation 100% 06/11/2021 4:40 PM [facility] Inhaled Oxygen Concentration - - Weight 63.2 kg (139 lb 6.4 oz) 06/11/2021 4:40 P M [facility] Height 172.7 cm (5' 8) 06/11/2021 4:40 PM [facility] Body Mass Index 21.2 06/11/2021 4:40 PM [facility] Plan of Treatment Health Maintenance Due Date Last Done Comments HIV for age 15-65 2005 Hepatitis C screening for age 18-79 2008 Depression screening for age 12+ 07/11/2021 07/11/2020, 03/26/2019, 03/23/2019 BMI (ht and wt on same day) for age 18+ 06/11/2022 06/11/2021, 07/11/2020, 03/23/2019 COVID-19 vaccine series ( season) 2023 06/19/2020 Influenza for age 9-49 12/11/2023 0, 03/23/2019, 02/28/2017, Additional history exists Pap test for age 21-65 06/30/2026 4, 07/01/2023, 07/11/2020 Tetanus booster 03/23/2029 03/23/2019, 05/0 08/2009, 10/27/2007, Additional history exists Tdap Completed 03/23/2019, 05/0 08/2009, 10/27/2007 Pneumococcal series for age 6-64 Aged Out No longer eligible based on patient's age to complete this topic Procedures Procedure Name Priority Date/Time Associated Diagnosis Comments TUBE TEST TECHNICIAN THIN PREP PAP SCREEN IMAGED Routine 07/01/2023 3:00 PM CDT from Last 3 Months or Most Recently Relevant to Health Maintenance Results * TUBE TEST TECHNICIAN THIN PREP PAP SCREEN IMAGED (07/01/2023 3:00 PM CDT) Case Report Gynecologic Cytology Report ? Case: [id number] ? Authorizing Provider: ??Emily Gould MD ??Collected: ? 07/01/2023 1500 ? Ordering Location: ? [facility] ?Received: ?07/05/2023 0839 ? First Screen: ?Tari Hendrix ? Specimen: ?TUBE TEST TECHNICIAN ThinPrep Vial Screening, Cervical ? 07/11/2023 2:19 PM CDT [facility]- ENTRAL LABORATORY INTERPRETATION/ RESULT NEGATIVE FOR INTRAEPITHELIAL LESION OR MALIGNANCY (NIL) (none) 07/11/2023 2:19 PM CDT [facility]- ENTRAL LAB[facility] IMEN ADEQUACY Satisfactory for evaluation Endocervical component present 07/11/2023 2:19 PM CDT [facility]- ENTRAL LABORATORY HPV REQUEST HPV and PAP 07/11/2023 2:19 PM CDT [facility] EN[facility]AL LAB[facility]ATORY Date of LMP 07/11/2023 2:19 PM CDT [facility]AL [facility] Comment:July 2021 Last Pap Date 08/01/2020 07/11/2023 2:19 PM CDT [facility] Last Pap Result NIL 2:19 PM CDT [facility]AL [facility] Abnormal Pap or Doyle Bx in last 5 years No 07/11/2023 2:19 PM CDT [facility] Menstrual Status Hormonally Suppressed 07/11/2023 2:19 PM CDT [facility] Doyle Bx Done Today No 07/11/2023 2:19 PM CDT [facility] Additional Information 07/11/2023 2:19 PM CDT [facility] Comment: Interpreted at [facility] - [address] [facility] [address], [place] [address] Automated Review Successful 07/11/2023 2:19 PM CDT [facility] Comment:Specimen processed s uccessfully by automated surveyor chain helper device, [employer] Imaging System, [employer] ANCILLARY TESTING TUBE TEST TECHNICIAN HPV Ordered, Please see separate report 07/11/2023 2:19 PM CDT [facility] Note The pap test is a screening technique, not a diagnostic procedure. It is used primarily to screen for squamous cancers and precursor lesions. Published studies have shown that it is subject to both false negative and false positive results. The pap test should not be used as the sole means to diagnose or exclude pre-malignant and malignant lesions. 07/11/2023 2:19 PM CDT [facility] Other (Cervical) 07/01/2023 3:00 PM CDT 07/05/2023 8:39 AM CDT Emily Gould MD PATHOLOGY/CYTOLO GY [facility] [address] [place] [address], [place] from Last 3 Months or Most Recently Relevant to Health Maintenance Care Teams Proposal Specialist Relationship Specialty Start Date End Date Clinic, No Pcp Or . PCP - General 03/12/19
--- NOTE | 2024-01-10 07:14 | ED.GENADULT ---
HPI - General Adult General Chief complaint: Vaginal Bleeding Stated complaint: possible miscarraige Time Seen by Provider: 12/28/23 20:13 History of Present Illness HPI narrative: Pt states she would be 4-5 weeks , from a home test-positive a week ago. Pt reports spotting this morning, mild cramping, lower back pain. Bleeding amount is an Overnight pad every 3 hours. 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 No light headedness or dizziness. No care and has not seen an OB MD yet. Pt states lower back pain rated 3/10 . Pt took Tylenol 2 hours ago. 33-year-old woman presenting to the emergency department with significant other with concern of bleeding in early . She believe she would be between 4 and 5 weeks . . LMP probably 11/24/2023. She does note herself to be O-positive blood type. Review of record confirms. Has been bleeding through overnight pads every 2-3 hours this morning. No shortness of breath or lightheadedness. Nausea has come and gone. Has had some mild cramping but increasing low back pain. No fever. Treated with acetaminophen. Planned . Related Data Home Medications ?Medication ?Instructions ?Recorded ?Confirmed prenat.vits,brandon,[id number] 1 tab PO QDAY 10/06/21 10/31/23 Previous Rx's ?Medication ?Instructions ?Recorded albuterol sulfate 90 mcg/actuation 2 puff inhalation Q6H PRN 03/10/23 aerosol inhaler shortness of breath or wheezing #6.7 grams Allergies Allergy/AdvReac Type Severity Reaction Status Date / Time No Known Drug Allergies Allergy Verified 10/31/23 13:24 Review of Systems Status of ROS: Reports: 6 or more systems reviewed and unremarkable except as noted in History and below [facility] Social History What is your current living situation?: I presently have a place to live Problems where you live: no known problems In the past 12 months, utilities in danger of being shut off: no In past 12 months, lack of transportation kept you from medical appts, meetings, work, or getting things needed for daily living: no In the past 12 mos, have been you worried that your food would run out before you had money to buy more?: never true In the past 12 mos, the food you bought just didn't last and you didn't have money to buy more?: never true Smoking Status: Never smoker How often does anyone, including family, friends and others, physically hurt you: never How often does anyone, including family, friends and others, insult or talk down to you: never How often does anyone, including family, friends and others, threaten you with harm: never How often does anyone, including family, friends and others, scream or curse at you: never Little interest or pleasure in doing things: not at all Feeling down, depressed, or hopeless: not at all Exam Narrative: Exam Narrative: Pleasant. NAD. Skin is warm and dry. Well-perfused peripherally. No edema. Heart rate a little elevated. Regular rhythm. Lungs appear to be clear. Abdomen is soft mildly uncomfortable to palpation centrally in the suprapubic area. No unusual swelling appreciated. Did not do exam. Const: Documenting provider has reviewed patient's vital signs: yes Course Vital Signs Vital signs: Initial Vital Signs Temperature 98.6 F 12/28/23 19:36 Temperature Source Temporal Artery Scan 12/28/23 19:36 Pulse Rate 112 H 12/28/23 19:36 Pulse Rhythm Regular 12/28/23 19:36 Respiratory Rate 16 12/28/23 19:36 Blood Pressure 157/95 H 12/28/23 19:36 Blood Pressure Mean 115 H 12/28/23 19:36 Blood Pressure Position Sitting 12/28/23 19:36 Pulse Oximetry 98 12/28/23 19:36 Oxygen Delivery Method Room Air 12/28/23 19:36 Vital Signs Temperature 98.6 F 12/28/23 19:36 Pulse Rate 112 H 12/28/23 19:36 Respiratory Rate 16 12/28/23 19:36 Blood Pressure 157/95 H 12/28/23 19:36 Pulse Oximetry 98 12/28/23 19:36 Oxygen Delivery Method Room Air 12/28/23 19:36 Temperature 98.6 F 12/28/23 19:36 Pulse Rate 92 12/28/23 20:59 Respiratory Rate 18 12/28/23 20:59 Blood Pressure 120/85 12/28/23 20:59 Pulse Oximetry 97 12/28/23 20:59 Oxygen Delivery Method Room Air 12/28/23 20:59 Medical Decision Making MDM Narrative Medical decision making narrative: Would need to evaluate for potential ectopic as no ultrasound has been done yet. Perhaps there is perigestational hemorrhage/bleed. Degree of bleeding as described is excessive I think for any recent intercourse. To early for bleeding from vasaprevia or placenta previa probably. Discussed with OB on-call Will need ultrasound. HCG level. Blood typing confirmation. Discussed ultrasound findings with battery charger. Somewhat impeded by bowel gas but no evidence of gestation at this time. No evidence of torsion TECHNIQUE: Ultrasound OB pelvis transvaginal. Real-time johnson-scale imaging of the pelvis was performed. COMPARISON: None. FINDINGS: Intrauterine gestation: Not visualized. heart activity (bpm): Not visualized. Dorr-rump length: N/A. Estimated ultrasound age: N/A. JIMI by ultrasound: N/A. Yolk sac: Not visualized. Perigestational hemorrhage: None. Ovaries and adnexa: Subcentimeter left adnexal cyst with simple appearance. Suspicious pelvic fluid collections: None. IMPRESSION: No sonographically apparent intrauterine , which could be due to early gestation. Consider beta hCG correlation and follow-up ultrasound in 10-14 days. Bleeding seem to light and over time in the emergency department. Hemoglobin is reassuring. HCG levels are inconsistent with expected and nearly 0. This would appear to be a complete miscarriage. Type O positive so no RhoGAM necessary. I do not think barring further complications, worsening bleeding that would necessitate repeat ultrasound or hCG levels See patient discharge plan for further discussion Medical Records Medical records reviewed: Yes I reviewed the patient's medical records Lab Data Lab results reviewed: Yes I reviewed the patient's lab results Labs: Lab Results 12/28/23 Range/Units 20:33 Hgb 14.3 (12.0-16.0) gm/dL HCG, Quant 6.13 mIU/mL Blood Type O Positive Discharge Plan Discharge Clinical Impression: Miscarriage Patient Disposition: Home w/ Parent or Adult Condition: Stable Additional Instructions: I am sorry to say this does appear to be a miscarriage. Considering your low HCG, I do not think follow-up for this repeat level is necessary. Return for marked increase in abdominal pain, bleeding such that you are soaking 2 overnight pads an hour for 2 consecutive hours, increasing lightheadedness or shortness of breath. Radiology over-read of ultrasound is pending. Will call you if there is anything further to discuss in this regard. Prescriptions: No Action prenat.vits,brandon,[id number] Tablet 1 tab PO QDAY albuterol sulfate 90 mcg/actuation HFA aerosol inhaler 2 puff inhalation Q6H PRN (Reason: shortness of breath or wheezing) Qty: 6.7 0RF Follow Up/Referrals: Provider,Not a Local [Primary Care Provider] - Stand Alone Forms: Workbooksth Info Instructions
== END 2023-12-28 22:04 | disposition home or self-care (01) ==
PROVIDERS: Emergency Provider Family Medicine
DX: O03.9 Complete or unspecified spontaneous abortion without complication (principal)
CPT/HCPCS: 36415; 76817; 84702; 85018; 86900; 86901; 99283; 99284

== ENCOUNTER 2024-03-30 12:40 | Outpatient (CLI) | payer BC, SELFPAY ==
--- NOTE | 2024-03-30 13:00 | CRLHL7_ITS ---
For Patients: As a result of the Century Cures Act, medical imaging exams and procedure reports are released immediately into your electronic medical record. You may view this report before your referring provider. If you have questions, please contact your health care provider. INDICATION: First trimester scan, establish dates. COMPARISON: None. TECHNIQUE: Real-time johnson-scale imaging of the pelvis was performed. FINDINGS/IMPRESSION: Sonographic imaging demonstrates a single living intrauterine gestation. The embryo demonstrates a regular cardiac rate measuring 173 beats per minute. The embryo`s crown-rump length measurement of 2.5 cm corresponds to a gestational age of 9 weeks 2 days with a sonographic due date of 10/31/2024. There is a normal-appearing yolk sac. There are no gross abnormalities noted within the embryo at this early state of development. The gestational sac has a normal appearance. There is a left-sided perigestational hemorrhage measuring 3.4 x 1.4 x 1.4 cm. The amount of fluid within the sac appears appropriate for gestational age. The cervix is closed. The myometrium appears normal. The ovaries are of normal size. Corpus luteal cyst left ovary measures 1.7 x 1.7 x 2.0 cm. There are no suspicious fluid collections noted in the cul-de-sac. Dictated by Ryan Andino MD @ 03/30/2024 1:20:13 PM (Electronically Signed)
== END 2024-03-30 12:41 | disposition home or self-care (01) ==
LOC: US 12:40
PROVIDERS: Visit Provider Advanced Practice Midwife
DX: O34.81 Maternal care for other abnormalities of pelvic organs, first trimester (principal); N83.12 Corpus luteum cyst of left ovary; Z3A.09 9 weeks gestation of pregnancy; R82.90 Unspecified abnormal findings in urine
CPT/HCPCS: 76817

== ENCOUNTER 2024-03-30 13:10 | Outpatient (CLI) | payer BC, SELFPAY | END 2024-03-30 13:11 | disposition home or self-care (01) | PROVIDERS: Visit Provider Advanced Practice Midwife | DX: R82.90 Unspecified abnormal findings in urine (principal) | CPT/HCPCS: 87086 ==

== ENCOUNTER 2024-04-06 07:45 | Outpatient (CLI) | payer BC, SELFPAY | END 2024-04-06 07:46 | disposition home or self-care (01) | LOC: NFLDREF 04-10 10:23 | PROVIDERS: Visit Provider Advanced Practice Midwife | DX: Z34.81 Encounter for supervision of other normal pregnancy, first trimester (principal) | CPT/HCPCS: 83020; 83021; 85660; 86592; 86703; 86704; 86706; 86762; 86787; 86803; 87340; 87491; 87591 ==

== ENCOUNTER 2024-04-20 13:15 | Outpatient (CLI) | payer BC, SELFPAY | END 2024-04-20 13:16 | disposition home or self-care (01) | LOC: NFLDREF 13:16 | PROVIDERS: Visit Provider Obstetrics & Gynecology | DX: Z34.91 Encounter for supervision of normal pregnancy, unspecified, first trimester (principal) | CPT/HCPCS: 86850 ==

== ENCOUNTER 2024-06-15 08:08 | Outpatient (CLI) | payer BC, SELFPAY | END 2024-06-15 08:09 | disposition home or self-care (01) | LOC: US 08:08 | PROVIDERS: Visit Provider Obstetrics & Gynecology | DX: Z34.92 Encounter for supervision of normal pregnancy, unspecified, second trimester (principal); Z3A.20 20 weeks gestation of pregnancy | CPT/HCPCS: 76805 ==

== ENCOUNTER 2024-08-10 08:13 | Outpatient (CLI) | payer BC, SELFPAY | END 2024-08-10 08:14 | disposition home or self-care (01) | LOC: NFLDREF 08-15 02:29 | PROVIDERS: Visit Provider Obstetrics & Gynecology | DX: Z34.83 Encounter for supervision of other normal pregnancy, third trimester (principal) | CPT/HCPCS: 86592 ==

== ENCOUNTER 2024-09-10 07:09 | Outpatient (CLI) | payer BC, SELFPAY ==
--- NOTE | 2024-09-10 07:15 | CRLHL7_ITS ---
For Patients: As a result of the Century Cures Act, medical imaging exams and procedure reports are released immediately into your electronic medical record. You may view this report before your referring provider. If you have questions, please contact your health care provider. OB ULTRASOUND JIMI by LMP/US: 10/31/2024. GA: 32 w, 5 d. INDICATION: Malformation of placenta. TECHNIQUE: Real time johnson scale imaging of the fetus was performed. Transabdominal imaging performed. Cervix: Not visualized. position: Vertex. Amniotic Fluid: 4.9 cm SDP (greater than/equal to: 2- less than 8 cm). Placenta: Technique: Transabdominal. Placenta position: Anterior. Dopplers: heart rate: 141 bpm. BPD: 7.9 cm. 31 w, 5 d, 15 percent. HC: 29.5 cm. 32 w, 5 d, 14 percent. AC: 29.5 cm. 33 w, 3 d, 73 percent. FL: 6.3 cm. 32 w, 5 d, 38 percent. FL/AC ratio: 21.46 percent. HC/AC ratio: 1.00. EFW: 2099 g. Weight: 4 lbs, 10 oz. age by this US: 32 w, 5 d. JIMI by this US: 10/31/2024. Percentile by JIMI: 50 percent. IMPRESSION: 1. Sonographic gestational age 32 weeks 5 days and sonographic due date 10/31/2024. Good correlation with dates. Normal interval growth. 2. Estimated weight 50th percentile. Abdominal circumference 73rd percentile. 3. The anterior placenta appears normal. Ryan Andino M.D. Diagnostic Radiologist [email or web address] МАРИЯ/Dictated by: Ryan Andino MD @ 09/10/2024 8:45:00 PM (Electronically Signed)
== END 2024-09-10 07:10 | disposition home or self-care (01) ==
PROVIDERS: Visit Provider Obstetrics & Gynecology
DX: O43.103 Malformation of placenta, unspecified, third trimester (principal); Z3A.32 32 weeks gestation of pregnancy
CPT/HCPCS: 76816

== ENCOUNTER 2024-10-05 13:37 | Outpatient (CLI) | payer BC, SELFPAY ==
[2024-10-06 15:54] LABS: Strep B DNA Probe Negative (Negative)
[2024-10-06 16:10] LABS: Strep B Susceptibility Needed? No
== END 2024-10-05 13:38 | disposition home or self-care (01) ==
PROVIDERS: Visit Provider Obstetrics & Gynecology
DX: Z34.93 Encounter for supervision of normal pregnancy, unspecified, third trimester (principal); Z3A.36 36 weeks gestation of pregnancy
CPT/HCPCS: 87081; 87653

== ENCOUNTER 2024-11-07 07:35 | Inpatient (IN) | payer BC, SELFPAY ==
[2024-11-07] VITALS (118 sets, daily range): BP systolic 83–147; BP diastolic 49–84; PULSE 69–111; RESP 16; TEMP 36.4–36.8; O2SAT 91–100; BMI 27.6
[2024-11-07 08:34] LABS: Hematocrit* 42.5 % (33.0-51.0); Hemoglobin* 14.5 gm/dL (12.0-16.0); Immature Granulocytes Abs Auto 0.10 K/uL (0.00-0.30); Immature Granulocytes Pct Auto 1.0 %; Mean Corpuscular HGB Conc 34 gm/dL (32-36); Mean Corpuscular Hemoglobin 30 pg (26-34); Mean Corpuscular Volume 87 fL (80-100); RDW Coefficient of Variation % 14.1 % (11.5-15.5); Red Blood Count* 4.87 m/uL (4.00-5.20); White Blood Count* 9.58 K/uL (4.50-11.00)
[2024-11-07 08:37] LABS: Lymphocytes Absolute Auto 1.70 K/uL (0.90-2.90)
[2024-11-07 08:38] LABS: Slide Review Reflex No
--- NOTE | 2024-11-07 08:43 | PM.OBHPLI ---
OB - H&P: HPI Labor/Induction History of Present Illness Date Seen: 11/07/24 Chief Complaint: IOL Chief complaint: Maternity Narrative: Delay documentation due to patient care. Jenn is a 33-year-old at 41 weeks 0 days gestation admitted for induction of labor in the setting of late term gestation. is otherwise complicated by migraines, ADHD, anxiety. Her complete history and physical was documented by Dr. Avitia on 10/11/2024, please see this for complete details. Patient is feeling well today with no acute concerns. Denies regular/painful contractions, vaginal bleeding or leaking of fluid. Endorses active movement. Specific Issues/Plans Partner: Bacilio Sex: girl. Bre Daughter: Gracie H&P: Dr. Avitia on 10/11/24 Interested in membrane sweep at 40 weeks IOL for submitted for November 06 to (tentative) for when she will be 40.6--> 41 weeks gestation # Migraines with aura. Has had a couple early by resolved with Tylenol and rest. # ADHD and anxiety. Not on meds. # KIRSTIE 3.4x1.4x1.4cm. No bleeding. # Placental shelf on FAS 09/10/24: Vtx, SDP 4.9cm. EFW: 2099g, 4#10oz, 50%. BPD 15%, HC 14%, 73%, FL 38%. Placenta appears normal. Imaging: FAS 06/15: Visualized anatomy is within normal limits. EFW 356 g at 57th percentile, AC 57%ile. Anterior placenta, no previa, placental shelf described. MVP 5.6 cm. Cx long/closed. 09/10: EFW 2099g at 50%ile, AC 73%ile. SDP 4.9cm. Placenta appears normal. Vaccinations: COVID: 01/10/24 Flu: 01/10/24 Tdap:08/27/24 RSV: N/A 32 week mental health: done GBS: Last pap: [Only high-risk abnormal pap results in problem list] Labs Blood type: O (+) positive GBS status: negative Meds Home Medications and Allergies Home Medications ?Medication ?Instructions ?Recorded ?Confirmed ?Type prenat.vits,brandon,[id number] 1 tab PO QDAY 10/06/21 11/07/24 History acetaminophen 500 mg tablet 500 mg PO Q6H PRN 03/30/24 11/07/24 History (Tylenol Extra Strength) docusate sodium 100 mg capsule 100 mg PO QDAY PRN 08/27/24 11/07/24 History (Colace) Allergies Allergy/AdvReac Type Severity Reaction Status Date / Time No Known Drug Allergies Allergy Verified 11/07/24 07:56 OB - H&P: Exam Physical Exam: Vital signs: Temp Pulse Resp BP Pulse Ox 98.2 F 101 H 16 134/82 94 11/07/24 08:33 11/07/24 07:51 11/07/24 08:33 11/07/24 07:51 11/07/24 07:51 Narrative: General: Alert and oriented, no acute distress Psych: Appropriate mood and affect Abdomen: Gravid. Cervix: Per bedside RN, 1.5/60/-1. Vertex. NST: Reactive. Baseline of 130 beats per minute, moderate variability, several qualifying 15 x 15 accelerations seen, no decelerations [place]: Irregular contractions OB - Results Labs Labs: Short CBC 11/07/24 Range/Units 08:25 WBC 9.58 (4.50-11.00) K/uL Hgb 14.5 (12.0-16.0) gm/dL Hct 42.5 (33.0-51.0) % Plt Count 179 (140-440) K/uL OB - Problem Based A/P Additional Plan (1) Migraine with aura: Status: Acute (2) Anxiety: Status: Acute (3) ADHD: Problem details: not on meds since before last Status: Acute (4) care: Status: Acute (5) 41 weeks gestation of : Status: Acute Plan Jenn is a 33-year-old at 41w 0d GA admitted for IOL in the setting of late term gestation. is otherwise complicated by ADHD, anxiety, migraines. - Cervix is 1.5/60/-1 on admission, plan to start cervical ripening with Cytotec. Discussed when she becomes favorable, we will then transition to Pitocin. Later augmentation could include amniotomy, where patient would like to get an epidural 1st. - Anticipate next exam in 3 hours, sooner as clinically indicated - No recent growth US - last on 6/2 was 50%ile - Blood type O positive - GBS negative
[2024-11-07] MEDS: OXYTOCIN 30 unit/500 ML in NS 30 UNIT/500 ML BAG IVPB (15:18)
[2024-11-07] MEDS: LACTATED RINGERS 1000 ML 1,000 ML 125 ML IV ×2 (15:18→19:46)
[2024-11-07 16:53] LABS: Hematocrit* 43.9 % (33.0-51.0); Hemoglobin* 14.9 gm/dL (12.0-16.0); Mean Corpuscular HGB Conc 34 gm/dL (32-36); Mean Corpuscular Hemoglobin 30 pg (26-34); Mean Corpuscular Volume 87 fL (80-100); Red Blood Count* 5.03 m/uL (4.00-5.20); White Blood Count* 11.62 K/uL (4.50-11.00)
[2024-11-07 16:54] LABS: Slide Review Reflex No
--- NOTE | 2024-11-07 18:01 | P.OBPN_ITS ---
Subjective Date Seen: 11/07/24 Narrative: Jenn is a 33-year-old at 41w 0d GA admitted for IOL in the setting of late term gestation. is otherwise complicated by ADHD, anxiety, migraines. I will has included Cytotec x2, then Pitocin. On last exam, cervix was 2.5/70/- 1. Patient has noted increasingly frequent and painful contractions, now comfortable with epidural in place. No vaginal bleeding or leaking of fluid. Endorses active movement. Discussed amniotomy is a potential next steps in her induction, risks/benefits reviewed. Verbal consent obtained. Objective Exam: General: Alert and oriented, no acute distress Psych: Appropriate mood and affect Abdomen: Gravid. Cervix: 4.5/80/-1. AROM performed, uncomplicated with clear fluid. NST: Recently had a period of recurrent late decelerations secondary to post- epidural hypotension, improved with treatment of her BP. Baseline of 125 beats per minute, moderate variability, several qualifying 15 x 15 accelerations seen, intermittent variable deceleration. Vital Signs: Last Vital Signs Temp 98.3 F 11/07/24 14:59 Pulse 77 11/07/24 17:16 Resp 16 11/07/24 14:59 BP 135/84 11/07/24 17:16 Pulse Ox 98 11/07/24 17:59 Plan Plan: Jenn is a 33-year-old at 41w 0d GA admitted for IOL in the setting of late term gestation. is otherwise complicated by ADHD, anxiety, migraines. - IOL has included cytotec x2, pitocin. Cervix is now 4.5/80/-1. AROM performed, uncomplicated. Pitocin was turned off in the setting of variable decelerations after AROM. Plan to continue with continuous monitoring, BP monitoring and treatment of hypotension as needed. resuscitation efforts ongoing. - Anticipate next exam in 4 hours, sooner as clinically indicated - Comfortable with epidural in place. - Patient has had 2 mild range BPs, but they were not by 4 hours. As such, her working diagnosis is elevated blood pressure without a diagnosis of hypertension. Preeclampsia labs were obtained and found to be within normal limits. If she has further elevated blood pressures, this would meet criteria for gestational hypertension. - Blood type O positive - GBS negative
[2024-11-07 18:06] LABS: Alanine Aminotransferase* 24 U/L (4-35); Aspartate Amino Transferase* 30 U/L (12-35); Blood Urea Nitrogen* 7 mg/dL (5-24); Creatinine* 0.6 mg/dL (0.5-1.5); Est. Creatinine Clearance* 134.53; Estimated Glomerular Filt Rate 121 ml/min
[2024-11-07] MEDS: LIDOCAINE 2% (PF) 5 ML VIAL EPIDURAL (18:11)
[2024-11-07] MEDS: ROPIVACAINE 0.2% 100 ml 100 ML 12 MG EPIDURAL (18:11)
[2024-11-07] MEDS: PHENYLEPHRINE 100 MCG/ML SYRINGE IVP ×7 (18:17→20:19)
[2024-11-07] MEDS: ePHEDrine sulfate 5 MG/ML inj 10 MG IVP ×4 (18:25→20:27)
--- NOTE | 2024-11-07 18:26 | P.ANBPRC_ITS ---
[facility] Medical History (Updated 11/07/24 @ 18:07 by Emily Gould MD) Dyspareunia Fecal incontinence ?R15.9 - Full incontinence of feces (ICD-10) Encounter for contraceptive management ?Z30.9 - Encounter for contraceptive management, unspecified (ICD-10) Frequent UTI ?N39.0 - Urinary tract infection, site not specified (ICD-10) Surgical History (Updated 03/30/24 @ 14:18 by Omaira Izquierdo CNM) H/O eye surgery ?Z98.890 - Other specified postprocedural states (ICD-10) Family History (Updated 03/30/24 @ 14:19 by Omaira Izquierdo CNM) Mother High blood pressure High cholesterol Maternal Grandfather High blood pressure High cholesterol Myocardial infarction Paternal Grandmother Ovarian cancer Social History (Updated 04/01/24 @ 12:05 by Omaira Izquierdo CNM) Narrative: SOCIAL Education: bachelors Work: payroll admin at [employer] Partner: Bacilio-, [place] Lives with: and child Pets: dogs Abuse: Denies past Special Diet: Denies Ok with a blood transfusion: yes Culture or hoahaoism beliefs: denies RISK FACTORS Exercise Times/wk: none currently, previously yoga and exercise programs Depression/Anxiety: anxiety and ADHD not on meds DARION: 4 PHQ 9: 8 Seat Belt Use: Routinely Smoking: Denies past/present Alcohol/day: Denies while Caffeine: 1-2 soda/coffee Drug Use: Denies past/present Chicken Pox: Yes as a child MRSA: Denies What is your current living situation?: I presently have a place to live Problems where you live: no known problems In the past 12 months, utilities in danger of being shut off: no In past 12 months, lack of transportation kept you from medical appts, meetings, work, or getting things needed for daily living: no In the past 12 mos, have been you worried that your food would run out before you had money to buy more?: never true In the past 12 mos, the food you bought just didn't last and you didn't have money to buy more?: never true Smoking Status: Never smoker How often does anyone, including family, friends and others, physically hurt you : never How often does anyone, including family, friends and others, insult or talk down to you: never How often does anyone, including family, friends and others, threaten you with harm: never How often does anyone, including family, friends and others, scream or curse at you: never Meds Home Medications and Allergies Home Medications ?Medication ?Instructions ?Recorded ?Confirmed ?Type prenat.vits,brandon,[id number] 1 tab PO QDAY 10/06/21 11/07/24 History acetaminophen 500 mg tablet 500 mg PO Q6H PRN 03/30/24 11/07/24 History (Tylenol Extra Strength) docusate sodium 100 mg capsule 100 mg PO QDAY PRN 08/0911/07/24 History (Colace) Allergies Allergy/AdvReac Type Severity Reaction Status Date / Time No Known Drug Allergies Allergy Verified 11/07/24 07:56 Results Labs Labs: Laboratory Results - last 24 hr 11/07/24 11/07/24 08:25 16:45 WBC 9.58 11.62 H RBC 4.87 5.03 Hgb 14.5 14.9 Hct 42.5 43.9 MCV 87 87 MCH 30 30 MCHC 34 34 RDW Coeff of Reema 14.1 Plt Count 179 181 Neut % (Auto) 72.1 H Lymph % (Auto) 17.5 L Levy % (Auto) 7.9 Eos % (Auto) 1.1 Baso % (Auto) 0.4 Neut # (Auto) 6.90 Lymph # (Auto) 1.70 Levy # (Auto) 0.80 Eos # (Auto) 0.11 Baso # (Auto) 0.04 Abs Immat Gran (auto) 0.10 Imm/Tot Granulo (auto) 1.0 BUN 7 Creatinine 0.6 Estimated Creat Clear 134.53 Estimated GFR 121 AST 30 ALT 24 Blood Type O Positive Antibody Screen NEGATIVE Vital Signs Vital Signs: Last Vital Signs Temp 98.2 F 11/07/24 18:12 Pulse 85 11/07/24 18:24 Resp 16 11/07/24 14:59 BP 107/58 L 11/07/24 18:24 Pulse Ox 99 11/07/24 18:24 Weight: 82.418 kg Height: 172.72 cm Anesthesia Procedures Epidural Insertion Patient Location: OB Start Time: 17:50 Stop Time: 18:50 Start Date: 11/07/24 Stop Date: 11/07/24 Reason for Block: primary anesthetic Patient Position: sitting Performed By: Rodolfo Muñoz Preanesthetic Checklist: IV checked, risks and benefits discussed, surgical consent, monitors and equipment checked, pre-op evaluation, timeout performed and anesthesia consent Prep: chlorhexidine gluconate Monitoring: blood pressure monitoring, senior network security engineer, continuous pulse oximetry and heart rate Approach: midline Vertebral Space: lumbar (1-5) Needle Type: Tuohy needle Injection Technique: continuous catheter Needle gauge: 17 Needle Length (cm): 10 cm Needle Insertion Depth (cm): 6 Catheter Gauge: 19 Catheter Type: multi-orifice Catheter at skin depth (cm): 12 Test Dose Result: negative and lidocaine 1.5% with epinephrine 1 to 200,000 Events: other
[2024-11-07] MEDS: LACTATED RINGERS 1000 ML 1,000 ML 1125 ML IV (18:55)
[2024-11-07 20:32] LABS: Protein Creatinine Ratio Urine 0.40 (0-0.19)
[2024-11-08] VITALS (16 sets, daily range): BP systolic 103–131; BP diastolic 57–82; PULSE 73–105; RESP 16–20; TEMP 36.4–36.9; O2SAT 96–99
[2024-11-08] MEDS: OXYTOCIN 30 unit/500 ML in NS 30 UNIT/500 ML BAG 300 UNIT IVPB (00:02)
--- NOTE | 2024-11-08 00:19 | W.PM.VAGDEL1 ---
Procedure Delivery date: 11/07/24 Procedure Done: Global Procedure Details: Normal spontaneous vaginal delivery Events: Other (Late term gestation, elevated BP without diagnosis of hypertension, migraine, anxiety ) Intrapartal Events: Labor Induction Delivery augmentation: rupture of membranes and pitocin Delivery monitor: internal FHT Route of delivery: Laceration description: Perineal - 1st Degree Delivery repair: Vicryl Estimated blood loss (mL): 300 Anesthesia type: Epidural Disposition: floor Complications: None Narrative: Jenn is a 33 yo at 41w0d GA admitted for induction of labor for late term gestation. is complicated by elevated blood pressure without a diagnosis of hypertension, migraine, anxiety, ADHD. heart tones on admission were category 1. Her labor was induced with Cytotec, augmented with Pitocin and AROM. Epidural was utilized for pain management. Status of bag of chilel: AROM, clear until start of 3rd stage where shilpa meconium was noted. heart tones during active labor were category 2. Patient had periods of recurrent variable decelerations and rare late decelerations, with rapid return to normal baseline of 150 beats per minute with moderate variability. She was complete at 2332 and started pushing at 2347. She made excellent descent throughout the second stage of labor, and had a normal spontaneous vaginal delivery at 2358. heart tones during second stage of labor were category 2 for recurrent variable decelerations, with rapid return to normal baseline of 140bpm. Baby delivered LOT, and the anterior and posterior shoulders delivered without difficulty. Nuchal cord: present x1, tight and non-reducible where delivery occurred via somersault maneuver. Nuchal cord was reduced immediately after delivery and was placed on maternal abdomen. She was noted to be vigorous with stimulation. The cord was clamped and cut after delayed cord clamping. Active management of the third stage occurred with IV pitocin and gentle cord traction and the placenta delivered spontaneous and intact at 0003. Cord gases sent: no Cord blood sent for infant ABO: no details: - Liveborn female fetus at 2358 - weight 4115g - APGARs were 8 and 9 at 1 and 5 minutes respectively Perineum and vagina were inspected, and the following lacerations were noted: 1st degree perineal laceration along previous scar. Repair was completed in the usual fashion with 3-0 vicryl under existing epidural analgesia. Excellent hemostasis was noted. The following counts were correct: sponges, needles, instruments. Mother and in stable condition following the . [place] Gender: Female presentation: vertex Placental Delivery Description: Spontaneous Cord Description: Nuchal Cord and Tight
[2024-11-08] MEDS: IBUPROFEN 600 MG TABLET PO ×4 (04:56→22:10)
[2024-11-08] MEDS: ACETAMINOPHEN 500 MG TABLET 1000 MG PO ×3 (06:23→20:05)
[2024-11-08] MEDS: DOCUSATE SODIUM 100 MG CAPSULE PO (08:08)
--- NOTE | 2024-11-08 12:52 | PM.ANPOST ---
Post Anesthesia Note Post Anesthesia Note Patient seen: Inpatient Respiratory Status: adequate Cardiovascular Status: adequate Mental Status: baseline Pain: adequate Temp: baseline Anesthetic awareness: no Complications: none Follow care: none
--- NOTE | 2024-11-08 14:35 | PM.OBPNVD1 ---
OB - PN:Subj Subjective Time Seen by Provider: 08:20 Date Seen: 11/08/24 Narrative: Jenn is from a vaginal delivery at 23:58 last night. Complains of severe cramping. Is with exclusively. Oxycodone ordered to use in addition to Tylenol and Ibuprofen for pain. Bleeding is minimal. Perineal pain is well-controlled. OB - PN: Obj Exam Physical Exam: Vital signs: Temp Pulse Resp BP Pulse Ox O2 Del Method 98.2 F 79 16 116/76 96 Room Air 11/08/24 12:11 11/08/24 12:11 11/08/24 12:11 11/08/24 12:11 11/08/24 12:11 11/08/24 12:11 Narrative: General: Pleasant, , well groomed woman in no acute distress. Vital signs: Included in her electronic medical record. Heart: Regular rate and rhythm without gallop, rub or murmur. Chest: Clear to auscultation bilaterally. Abdomen: Soft, nontender and nondistended with normal bowel sounds throughout. No CVA or flank tenderness. Fundus firm at umbilicus but off to the patient's left. Extremities: No pain or edema. OB - PN: Obj Data Labs Labs: Laboratory Results - last 24 hr 11/07/24 11/07/24 16:14 16:45 WBC 11.62 H RBC 5.03 Hgb 14.9 Hct 43.9 MCV 87 MCH 30 MCHC 34 Plt Count 181 BUN 7 Creatinine 0.6 Estimated Creat Clear 134.53 Estimated GFR 121 AST 30 ALT 24 Urine Creatinine 53.1 Protein/Creatinin Ratio 0.40 H Urine Total Protein 21 OB - PN: A/P Delivery Assessment and Plan (1) (normal spontaneous vaginal delivery): Status: Acute Assessment and Plan: 1. Continue care. 2. Oxycodone ordered to use as needed in addition to ibuprofen and Tylenol. 3. Planning discharge home tomorrow.
[2024-11-09 01:14] VITALS: BP 121/82; PULSE 82; RESP 16; O2SAT 97
[2024-11-09] MEDS: ACETAMINOPHEN 500 MG TABLET 1000 MG PO ×2 (01:31→08:02)
[2024-11-09 05:39] LABS: Hemoglobin* 13.0 gm/dL (12.0-16.0)
[2024-11-09 08:00] VITALS: BP 122/82; PULSE 83; RESP 16; TEMP 36.8; O2SAT 97
[2024-11-09] MEDS: IBUPROFEN 600 MG TABLET PO (08:02)
[2024-11-09] MEDS: DOCUSATE SODIUM 100 MG CAPSULE PO (08:03)
--- NOTE | 2024-11-09 08:17 | P.DS_ITS ---
DS: Providers Provider Date Seen: 11/09/24 Date of admission: 11/07/24 07:35 Primary care physician: Not a Local Provider Admitting Clinician: Emily Gould MD Attending Physician on discharge: Mary Priest CNM DS: Diagnosis Discharge Diagnosis (1) care and examination immediately after delivery: Status: Acute (2) Elevated blood pressure reading without diagnosis of hypertension: Status: Acute (3) Lactating mother: Status: Acute (4) Anxiety: Status: Acute (5) ADHD: Status: Acute Problem details: not on meds since before last Exam 2 Narrative: Exam Narrative: GENERAL APPEARANCE:? normal affect, alert, no distress MOOD:? appropriate CHEST:? clear to auscultation HEART:? regular rate and rhythm ABDOMEN:? soft, non-tender the uterine fundus is At Umbilicus, Midline and is appropriate for the stage of recovery. PERINEUM:? mild edema of the perineum, there is a Perineal Laceration,?1st degree, that is healing well. EXTREMITIES:? normal and no edema Const: Vital Signs, click to edit/add: Vital Signs - 24 hr 11/08/24 12:11 11/08/24 15:31 11/08/24 20:09 Temperature 98.2 F 97.5 F L Pulse Rate [Pulse Oximeter] 79 85 73 Respiratory Rate 16 20 20 Blood Pressure [Le ft Arm] 116/76 107/72 109/72 Pulse Oximetry 96 96 97 Oxygen Delivery Me thod Room Air Room Air Room Air 11/09/24 01:14 Temperature Pulse Rate [Pulse Oximeter] 82 Respiratory Rate 16 Blood Pressure [Le ft Arm] 121/82 Pulse Oximetry 97 Oxygen Delivery Me thod Documenting provider has reviewed patient's vital signs: yes OB - DS: Summary Hospital Course Hospital Course: Jenn is a 33 y.o. G 3 P 2 who was admitted to [facility] for induction of labor for post-dates. ?She had a NVD that was uncomplicated. The patient feels well. ?The pain is well controlled with current medications. ?She has no new complaints. ?She is breast feeding and reports things are going well. the patient has done well.? Vitals have been stable.? She has remained afebrile.? Has a good appetite, is tolerating a general diet. ?She is voiding without difficulty.? She is passing gas and has had a bowel movement.? She is ambulating and denies any dizziness.? Has small amount of rubra lochia. Problems: none Discharge home with baby.? Follow up in 2 weeks and 6 weeks.? , may see if needed? Hgb 13.0. ? Elevated BP without diagnosis of HTN For pain control of perineum, breast and pelvic pain, take 600 mg Ibuprofen e very 6 hours as needed by mouth or 1000 mg acetaminophen (Tylenol) every 6 hours by mouth as needed. You can alternate these so you are taking something every 3 hours as needed. A heating pad can also be used for your abdomen or breasts. You may also take docusate sodium up to twice daily to soften your stools and help to prevent constipation. You may wean off of it when your stools return to norm al.? Peripartum Data Infant delivery method: Vaginal Laceration description: Perineal - 1st Degree complications: none [place] Gender: Female Infant Discharge Plan: Home Status at Discharge Functional status at discharge: independent ambulation Overall status at discharge: patient is progressing back to baseline Time Spent with Patient Time attestation: Total time spent providing and/or coordinating discharge services: Time spent: Less than 30 minutes Discharge Plan Discharge Disposition: Home, Self-Care Date of Admission: 11/07/24 07:35 Attending Provider on Discharge: Mary Priest Consulting Providers: Laura Avitia Primary Care Provider: Provider,Not a Local Condition: Stable Anticipated Discharge Date/Time: 11/09/24 12:00 Discharge Medications: New docusate sodium 100 mg Capsule 100 mg PO DAILY Qty: 60 0RF ibuprofen 600 mg Tablet 600 mg PO Q6H PRNQty: 60 0RF acetaminophen 500 mg Tablet 1,000 mg PO Q6H PRN (Reason: pain/fever) Qty: 0 0RF Continued prenat.vits,brandon,[id number] Tablet 1 tab PO QDAY Discontinued docusate sodium [Colace] 100 mg capsule 100 mg PO QDAY PRN acetaminophen [Tylenol Extra Strength] 500 mg tablet 500 mg PO Q6H PRN Discharge Orders: Discharge Order (Routine); Ordered 11/09/24 Ordered By: Mary Priest Patient Education: OB Over the Counter Medication Information, OB Vaginal/Breast Feeding Additional Instructions: Discharge instructions were reviewed with the patient including signs and symptoms of infection and home going medications Nothing vaginally for 6 weeks: no tampons or intercourse Off Work or School for 6 weeks 2-week visit: discuss infant feeding concerns, review control options and screen for anxiety/depression. 6-week visit for an annual exam. consultation services are available to all mothers and babies for the first year after delivery.? To make an appointment, please call [phone]. Activity Level: Activity as Tolerated and No strenuous activity Discharge Diet: Regular Follow Up Appointments: [facility] [Provider Group] Forms: Monitoring Divisionth Info Instructions
== END 2024-11-09 11:52 | disposition home or self-care (01) | DRG 560 ==
PROVIDERS: Admitting Provider Obstetrics & Gynecology; Visit Provider Obstetrics & Gynecology
DX: O48.0 Post-term pregnancy (principal); O76 Abnormality in fetal heart rate and rhythm complicating labor and delivery; I95.89 Other hypotension; O70.0 First degree perineal laceration during delivery; O77.0 Labor and delivery complicated by meconium in amniotic fluid; R03.0 Elevated blood-pressure reading, without diagnosis of hypertension; G43.109 Migraine with aura, not intractable, without status migrainosus; O99.344 Other mental disorders complicating childbirth; F41.9 Anxiety disorder, unspecified; F90.9 Attention-deficit hyperactivity disorder, unspecified type; Z3A.41 41 weeks gestation of pregnancy; Z37.0 Single live birth
CPT/HCPCS: 01967; 36415; 59200; 82565; 82570; 84156; 84450; 84460; 84520; 85018; 85025; 85027; 86592; 86850; 86900; 86901; 88307; 94761; A9270; J2795; J3010; J7120

== ENCOUNTER 2025-01-24 09:23 | Outpatient (CLI) | payer BC, SELFPAY ==
--- NOTE | 2025-02-26 12:31 | W.PM.SLEEP ---
Sleep Study Details Details Interpreting Provider: Ethan Date of Sleep Study: 01/24/25 Sleep Study Details: STUDY TYPE:? Home unattended ? BMI:? 22.8 ORDERING PROVIDER:? Ethan INDICATION:? Concern for sleep apnea ? SLEEP SUMMARY:? 489 minutes monitored RESPIRATORY SUMMARY:? AHI 2.7 Low oxygen 88 1.3% of study oxygen less than 90% Snoring 83.9% PERIODIC LIMB MOVEMENTS OF SLEEP:? Not recorded CARDIAC:? Range 56-114, mean 68.9 beats per minute IMPRESSION:? Primary snoring. This study does not demonstrate clinically significant obstructive sleep apnea RECOMMENDATION: If sleep disorder strongly suspected recommend either in-lab study or repeat study with that if it not engage in.
== END 2025-01-24 09:24 | disposition home or self-care (01) ==
LOC: SLEEP 09:23
PROVIDERS: Visit Provider Otolaryngology
DX: G47.19 Other hypersomnia (principal)
CPT/HCPCS: 95806